=== PATIENT | male | born 1990 | race Hispanic/Latino ===

== ENCOUNTER 2019-11-02 20:11 | Inpatient (IN) | payer SELFPAY ==
[~2019-11-02] VITALS: Ht 175.3 cm; Wt 76.7 kg
[2019-11-02] MEDS ORDERED: PENICILLIN G BENZATHINE LA 1.2 MU TBX IM STA (21:30)
[2019-11-02] MEDS ORDERED: SODIUM CHLORIDE 0.9% 1000ML 1,000 ML ONE (21:42)
[2019-11-02] MEDS ORDERED: ONDANSETRON HCL INJ 2MG/ML 2ML 2 MG/ML VIAL ONE (21:42)
[2019-11-02 21:43] LABS: BASOPHILS # (AUTO) 0.1 (0.0-0.1); BASOPHILS % 0.6 % (0.0-1.0); EOSINOPHILS % 0.1 % (0.0-6.0); HEMATOCRIT 52.1 % (38.2-49.6); HEMOGLOBIN 17.1 g/dL (14.0-18.0); LYMPHOCYTES # (AUTO) 1.2 (1.0-3.2); LYMPHOCYTES % 8.7 % (18.0-39.1); MEAN CORPUSCULAR HEMOGLOBIN 28.7 pg (28-32); MEAN CORPUSCULAR HGB CONC 32.8 g/dL (31-35); MEAN CORPUSCULAR VOLUME 87.6 fL (81-99); MONOCYTES # (AUTO) 0.6 (0.2-0.8); MONOCYTES % 4.6 % (4.4-11.3); NEUTROPHILS # (AUTO) 11.9 (2.1-6.9); NEUTROPHILS % 85.7 % (38.7-80.0); PLATELET COUNT 177 x10e3/uL (140-360); RED BLOOD COUNT 5.95 x10e6/uL (4.3-5.7); RED CELL DISTRIBUTION WIDTH 13.7 % (11.7-14.4)
[2019-11-02] MEDS ORDERED: SODIUM CHLORIDE 0.9% 1000ML 1,000 ML IV ONE ×2 (21:45→23:30)
--- NOTE | 2019-11-02 21:48 | Emergency Department Note ---
History of Present Illnes History of Present Illness Chief Complaint: COVID PUI History of Present Illness This is a 29 year old male PRESENTS TO ED WITH N/V, GENERALIZED WEAKNESS X5 DAYS AND STREP THROAT DX'D ON MONDAY AT ER; PT REPORTS, "MY MOM MADE ME COME IN. STARTED ORAL ANTIBIOTICS 2 DAYS AGO. Historian: Patient, Family Member Arrival Mode: Car Onset (how long ago): day(s) (5) Location: THROAT Quality: PAIN, N/V, WEAKNESS Radiation: Reports non-radiation Severity: moderate Onset quality: gradual Duration (how long): day(s) (5) Timing of current episode: constant Progression: waxing and waning Chronicity: new Context: Reports recent illness (POSITIVE STREP SCREEN) Relieving factors: none Exacerbating factors: none Associated symptoms: Reports fever/chills, Reports nausea/vomiting Past Medical/Family History Physician Review I have reviewed the patient's past medical and family history. Any updates have been documented here. Past Medical History Recent Fever: No Clinical Suspicion of Infectio: No New/Unexplained Change in Ment: No Past Medical History: None Past Surgical History: None Social History Smoking Cessation: Never Smoker Alcohol Use: None Any Illegal Drug Use: No Family History Family history of heart diseas: No Review of Systems Review of Systems Constitutional: Reports no symptoms EENTM: Reports as per HPI Cardiovascular: Reports no symptoms Respiratory: Reports no symptoms Gastrointestinal: Reports no symptoms, Reports as per HPI Genitourinary: Reports no symptoms Musculoskeletal: Reports no symptoms Integumentary: Reports no symptoms Neurological: Reports no symptoms Psychological: Reports no symptoms Endocrine: Reports no symptoms Hematological/Lymphatic: Reports no symptoms Physical Exam Related Data Allergies: Coded Allergies: No Known Allergies (Unverified , 11/02/19) Triage Vital Signs Vital Signs Date Time Temp Pulse Resp B/P (MAP) Pulse Ox O2 Delivery O2 Flow Rate FiO2 11/02/19 20:43 99.3 130 18 132/98 99 Room Air Vital signs reviewed: Yes Physical Exam CONSTITUTIONAL Constitutional: Present well-developed, Present well-nourished HENT HENT: Present normocephalic, Present atraumatic, Present nose normal, Present erythema (EXUDATES, TONSILAR HYPERTROPHY) HENT L/R: Present left ext ear normal, Present right ext ear normal EYES Eyes: Reports PERRL, Reports conjunctivae normal NECK Neck: Present ROM normal PULMONARY Pulmonary: Present effort normal, Present breath sounds normal CARDIOVASCULAR Cardiovascular: Present regular rhythm, Present heart sounds normal, Present capillary refill normal, Present tachycardia (130) GASTROINTESTINAL Abdominal: Present soft, Present nontender, Present bowel sounds normal GENITOURINARY Genitourinary: Present exam deferred SKIN Skin: Present warm, Present dry MUSCULOSKELETAL Musculoskeletal: Present ROM normal NEUROLOGICAL Neurological: Present alert, Present oriented x 3, Present no gross motor or sensory deficits PSYCHOLOGICAL Psychological: Present mood/affect normal, Present judgement normal Results Laboratory Laboratory Laboratory Tests Test 11/03/19 00:56 11/02/19 22:48 11/02/19 21:35 Lactic Acid Level 2.1 mmol/L (0.5-2.0) 3.2 mmol/L (0.5-2.0) White Blood Count 13.81 x10e3/uL (4.8-10.8) Red Blood Count 5.95 x10e6/uL (4.3-5.7) Hemoglobin 17.1 g/dL (14.0-18.0) Hematocrit 52.1 % (38.2-49.6) Mean Corpuscular Volume 87.6 fL (81-99) Mean Corpuscular Hemoglobin 28.7 pg (28-32) Mean Corpuscular Hemoglobin Concent 32.8 g/dL (31-35) Red Cell Distribution Width 13.7 % (11.7-14.4) Platelet Count 177 x10e3/uL (140-360) Neutrophils (%) (Auto) 85.7 % (38.7-80.0) Lymphocytes (%) (Auto) 8.7 % (18.0-39.1) Monocytes (%) (Auto) 4.6 % (4.4-11.3) Eosinophils (%) (Auto) 0.1 % (0.0-6.0) Basophils (%) (Auto) 0.6 % (0.0-1.0) Neutrophils # (Auto) 11.9 (2.1-6.9) Lymphocytes # (Auto) 1.2 (1.0-3.2) Monocytes # (Auto) 0.6 (0.2-0.8) Eosinophils # (Auto) 0.0 (0.0-0.4) Basophils # (Auto) 0.1 (0.0-0.1) Absolute Immature Granulocyte (auto 0.04 x10e3/uL (0-0.1) Sodium Level 140 mmol/L (136-145) Potassium Level 4.7 mmol/L (3.5-5.1) Chloride Level 93 mmol/L (98-107) Carbon Dioxide Level 25 mmol/L (22-29) Anion Gap 26.7 mmol/L (8-16) Blood Urea Nitrogen 41 mg/dL (7-26) Creatinine 3.44 mg/dL (0.72-1.25) Estimat Glomerular Filtration Rate 22 ML/MIN (60-) BUN/Creatinine Ratio 12 (6-25) Glucose Level mg/dL (74-118) Calcium Level 10.0 mg/dL (8.4-10.2) Laboratory Tests Test 11/02/19 21:35 Imaging Imaging results reviewed: Yes Impressions Procedure: [id number] DX/CHEST SINGLE (PORTABLE) Exam Date: 11/02/19 Exam Time: 2149 REPORT STATUS: Signed EXAMINATION: CHEST SINGLE (PORTABLE) INDICATION: FEVER COMPARISON: None FINDINGS: TUBES and LINES: None. LUNGS: Normal lung volumes. Lungs are clear. No consolidations. PLEURA: No pleural effusion or pneumothorax. HEART AND MEDIASTINUM: The cardiomediastinal silhouette is unremarkable. BONES AND SOFT TISSUES: No acute osseous lesion. Soft tissues are unremarkable. UPPER ABDOMEN: No free air under the diaphragm. IMPRESSION: No acute thoracic radiographic abnormality. Signed by: Citlali Rodriguez MD on 11/02/2019 10:39 PM Dictated By: CITLALI RODRIGUEZ MD 38 Transcribed By: KARELY on 11/02/192238 COPY TO: CHARMAINE FERNANDEZ MD~ Procedures 12 Lead ECG Interpretation ECG Interpretation : ECG: ECG 1 Reed Man: Interpreted by ED physician Date: Nov 02, 2019 Time: 21:28 Rhythm: sinus tachycardia Rate: tachycardia BPM: 132 QRS axis: normal ST segments normal: Yes T waves normal: Yes Other findings: no other findings Clinical Impression: non-specific ECG Assessment & Plan Medical Decision Making MDM PT WITH KNOWN STREP HERE WITH WEAKNESS, N/V CBC,BMP, CXR ORDERED TO EVAL FOR PNEUMONIA, ELECTROLYTE ABNORMALITY, DE HYDRATION 1 LITER NS IV ORDERED ZOFRAN 4 MG IV SEPSIS TIME 2351 PT FOUND TO BE IN ACUTE RENAL FAILURE, LACTIC ACID ORDERED, BL OOD CULTURE ORDERED ROCEPHIN 1 GRAM IV ORDERED INITIAL LACTIC ACID 3.[address] MCKENZIE AND LEFT A MESSAGE FOR DR HARDIN Assessment & Plan Final Impression: (1) Severe sepsis (2) Strep pharyngitis (3) Nausea & vomiting (4) Dehydration Depart Disposition: ADMITTED Last Vital Signs Date Time Temp Pulse Resp B/P (MAP) Pulse Ox O2 Delivery O2 Flow Rate FiO2 11/02/19 20:43 99.3 130 18 132/98 99 Room Air Medications in the ED Penicillin G Benzathine 1.2 mu ONCE STAT IM ; Start 11/02/19 at 21:30; Stop 11/02/19 at 21:31 Sodium Chloride 1,000 ml @ 999 mls/hr Q1H1M ONCE IV Last administered on 11/02/19at 21:42; Admin Dose 999 MLS/HR; Start 11/02/19 at 21:45; Stop 11/02/19 at 22:45 Sodium Chloride 1,000 ml @ ud STK-MED ONCE .ROUTE ; Start 11/02/19 at 21:42; Stop 11/02/19 at 21:36; Status DC Ondansetron HCl 4 mg STK-MED ONCE .ROUTE ; Start 11/02/19 at 21:42; Stop 11/02/19 at 21:36; Status DC CHARMAINE FERNANDEZ MD Nov 02, 2019 21:48
[2019-11-02 22:03] LABS: ANION GAP 26.7 mmol/L (8-16); CREATININE, SERUM 3.44 mg/dL (0.72-1.25); POTASSIUM 4.7 mmol/L (3.5-5.1)
[2019-11-02] MEDS ORDERED: CEFTRIAXONE SOD 1 GM/NS 50 ML 50 ML IV ONE (22:15)
--- NOTE | 2019-11-02 22:42 | Diagnostic Imaging Report ---
EXAMINATION: CHEST SINGLE (PORTABLE) INDICATION: FEVER COMPARISON: None FINDINGS: TUBES and LINES: None. LUNGS: Normal lung volumes. Lungs are clear. No consolidations. PLEURA: No pleural effusion or pneumothorax. HEART AND MEDIASTINUM: The cardiomediastinal silhouette is unremarkable. BONES AND SOFT TISSUES: No acute osseous lesion. Soft tissues are unremarkable. UPPER ABDOMEN: No free air under the diaphragm. IMPRESSION: No acute thoracic radiographic abnormality. Signed by: Brandt Renee MD on 11/02/2019 10:39 PM
[2019-11-03] VITALS (8 sets, daily range): BP systolic 118–133; BP diastolic 88–101
--- OUTSIDE RECORDS SUMMARY | 2019-11-03 00:02 | XMS REPORT | Continuity of Care Document ---
Author Author [facility] Organization [facility] Address [address] [place] [address] [place] [id number] Phone Unavailable Care Team Providers Care Sports Centre Manager Name Role Phone Fang FERNANDEZ Attphycelia Unavailable Problems This patient has no known problems. Allergies, Adverse Reactions, Alerts This patient has no known allergies or adverse reactions. Medications This patient has no known medications. Procedures This patient has no known procedures. Results Test Description Test Time Test Comments Results Result Comments Source CHEST SINGLE (PORTABLE) 2019-11-02 22:06:00 [place] [address] Patient Name: KELSEY JUAREZ MR #: [id number] : 1990 Age/Sex: 29/M Req #: [id number] Adm Physician: Ordered by: CHARMAINE FERNANDEZ MD Report #: [id number] Location: ER Room/Bed: Procedure: [id number] DX/CHEST SINGLE (PORTABLE) Exam Date: 11/02/19 Exam Time: 2150 REPORT STATUS: Signed EXAMINATION: CHEST SINGLE (PORTABLE) INDICATION: FEVER COMPARISON: None FINDINGS: TUBES and LINES: None. LUNGS: Normal lung volumes. Lungs are clear. No consolidations. PLEURA: No pleural effusion or pneumothorax. HEART AND MEDIASTINUM: The cardiomediastinal silhouette is unremarkable. BONES AND SOFT TISSUES: No acute osseous lesion. Soft tissues are unremarkable. UPPER ABDOMEN: No free air under the diaphragm. IMPRESSION: No acute thoracic radiographic abnormality. Signed by: Citlali Rodriguez MD on 11/02/2019 10:39 PM Dictated By: CITLALI RODRIGUEZ MD 38 Transcribed By: KARELY on 11/02/192238 COPY TO: CHARMAINE FERNANDEZ MD
--- NOTE | 2019-11-03 01:46 | NUR ---
CELSO TONG NOTIFIED AND AWARE OF CRITICAL LAB VALUE, LACTIC ACID 2.1.
[2019-11-03 02:11] LABS: CLARITY,URINE CLEAR (CLEAR); COLOR,URINE YELLOW (YELLOW)
[2019-11-03 02:12] LABS: AMPHETAMINES SCREEN,URINE NEGATIVE (NEGATIVE); BENZODIAZEPINES SCREEN,URINE NEGATIVE (NEGATIVE); BILIRUBIN,URINE NEGATIVE (NEGATIVE); KETONES,URINE 1+ (NEGATIVE); LEUKOCYTE ESTERASE ,URINE NEGATIVE (NEGATIVE); NITRITE,URINE NEGATIVE (NEGATIVE); PHENCYCLIDINE SCREEN,URINE NEGATIVE (NEGATIVE); PROTEIN,URINE DIPSTICK NEGATIVE (NEGATIVE); URINE UROBILINOGEN 0.2 mg/dL (0.2 - 1); WBC,URINE (MAN) 0-5 /HPF (0-5)
[2019-11-03 02:13] LABS: BACTERIA,URINE FEW /HPF; EPITHELIAL CELLS,URINE RARE /LPF
[2019-11-03] MEDS ORDERED: CEFTRIAXONE SOD 1 GM/NS 50 ML 50 ML IV SCH ×2 (02:30→22:00)
[2019-11-03] MEDS ORDERED: ONDANSETRON HCL INJ 2MG/ML 2ML 2 MG/ML VIAL IV PRN (02:30)
--- OUTSIDE RECORDS SUMMARY | 2019-11-03 02:32 | XMS REPORT | Continuity of Care Document ---
Author Author [facility] Organization [facility] Address [address] [place] [address] [place] [phone] Phone Unavailable Care Team Providers Care Battery Stacker Name Role Phone Fang FERNANDEZ Attphycelia Unavailable Problems This patient has no known problems. Allergies, Adverse Reactions, Alerts This patient has no known allergies or adverse reactions. Medications This patient has no known medications. Procedures This patient has no known procedures. Results Test Description Test Time Test Comments Results Result Comments Source CHEST SINGLE (PORTABLE) 2019-11-02 22:06:00 [place] [address] Patient Name: KELSEY JUAREZ MR #: [id number] : 1990 Age/Sex: 29/M Req #: [id number] Adm Physician: Ordered by: CHARMAINE FERNANDEZ MD Report #: [id number] Location: ER Room/Bed: Procedure: [id number] DX/CHEST SINGLE (PORTABLE) Exam Date: 11/02/19 Exam [...]
--- NOTE | 2019-11-03 04:01 | NUR ---
REPORT RECEIVED FROM HECTOR HOUSTON RN, PATIENT PENDING ARRIVAL TO THE FLOOR ROOM 286, SBAR REPORT GIVEN TO THIS NURSE VERBALLY VIA TELEPHONE, ROCEPHIN 1GM IV GIVEN IN ER, DOSE DUE AT 0230 THIS AM RESCHEDULE TO CORRECT TIME
[2019-11-03 04:14] LABS: LYMPHOCYTES % (MANUAL) 11 % (19-48); MONOCYTES % (MANUAL) 5 % (3.4-9.0); NEUTROPHILS % (MANUAL) 84 % (40-74); RBC MORPHOLOGY COMMENT NORMAL
[2019-11-03 04:15] LABS: PLATELET ESTIMATE ADEQUATE; PLATELET MORPHOLOGY COMMENT MOD EDTA CLUMPING
[2019-11-03] MEDS: SODIUM CHLORIDE 0.9% 1000ML 1,000 ML IV SCH ×3 (05:17→12:29)
--- NOTE | 2019-11-03 07:00 | NUR ---
RECEIVED PATIENT RESTING IN BED NO S/S OF DISTRESS. BED LOW, WHEELS LOCKED, SIDE RAILS X2. CALL LIGHT IN REACH WILL CONTINUE TO MONITOR PATIENT.
[2019-11-03 09:03] LABS: ALBUMIN 3.8 g/dL (3.5-5.0); BILIRUBIN,DIRECT 0.2 mg/dL (0.0-0.5)
[2019-11-03 09:29] LABS: CREATINE KINASE 22 IU/L (30-200)
--- NOTE | 2019-11-03 09:40 | NUR ---
DR. MCKENZIE MADE AWARE OF LACTIC ACID 3.8 NO NEW ORDERS AT THIS TIME. WILL CONTINUE TO MONITOR PATIENT.
[2019-11-03 09:55] LABS: BASOPHILS # (AUTO) 0.1 (0.0-0.1); BASOPHILS % 0.7 % (0.0-1.0); EOSINOPHILS % 0.1 % (0.0-6.0); HEMATOCRIT 51.7 % (38.2-49.6); HEMOGLOBIN 16.4 g/dL (14.0-18.0); LYMPHOCYTES # (AUTO) 2.2 (1.0-3.2); LYMPHOCYTES % 12.2 % (18.0-39.1); MEAN CORPUSCULAR HEMOGLOBIN 29.1 pg (28-32); MEAN CORPUSCULAR HGB CONC 31.7 g/dL (31-35); MONOCYTES % 5.4 % (4.4-11.3); NEUTROPHILS # (AUTO) 14.3 (2.1-6.9); NEUTROPHILS % 81.1 % (38.7-80.0); PLATELET COUNT 163 x10e3/uL (140-360); RED BLOOD COUNT 5.64 x10e6/uL (4.3-5.7); RED CELL DISTRIBUTION WIDTH 14.4 % (11.7-14.4)
[2019-11-03 09:58] LABS: MEAN CORPUSCULAR VOLUME 91.7 fL (81-99)
[2019-11-03 10:07] LABS: ANION GAP 23.7 mmol/L (8-16); CALCIUM 10.2 mg/dL (8.4-10.2); CREATININE, SERUM 2.69 mg/dL (0.72-1.25); POTASSIUM 4.7 mmol/L (3.5-5.1)
[2019-11-03] MEDS ORDERED: DEXTROSE 50% SYRINGE 50 ML IV PRN ×2 (10:15→15:15)
[2019-11-03] MEDS ORDERED: INSULIN LISPRO 100 UNIT/1 ML 3ML VIAL SQ ONE (10:15)
[2019-11-03] MEDS ORDERED: INSULIN GLARGINE 100 UNITS/ML VIAL SQ ONE (10:15)
[2019-11-03] MEDS ORDERED: VANCOMYCIN 1GM/NS 250 ML 250 ML IV ONE (10:15)
[2019-11-03] MEDS: CEFTRIAXONE SOD 1 GM/NS 50 ML 50 ML IV SCH ×2 (10:28→21:00)
[2019-11-03] MEDS ORDERED: DIATRIZOATE MEGL/DIATRIZOA SOD 30 ML BTL PO ONE (10:40)
[2019-11-03] MEDS ORDERED: INSULIN REGULAR, HUMAN 3ML VL 100 UNIT in SODIUM CHLORIDE 0.9% 100 ML 99 ML IV SCH ×2 (10:45)
--- NOTE | 2019-11-03 11:05 | NUR ---
PATIENT TRANSFERRED TO ROOM 197 IN STABLE CONDITION.
[2019-11-03] MEDS ORDERED: INSULIN LISPRO 100 UNIT/1 ML 3ML VIAL SQ SCH ×2 (11:30)
--- NOTE | 2019-11-03 11:57 | History and Physical ---
CHIEF COMPLAINT: Generalized weakness for the past week associated with strep throat diagnosis on in emergency room. HISTORY OF PRESENT ILLNESS: The patient is a 29-year-old male, was brought in by his mother. Apparently, the patient started his oral antibiotics approximately 2 days ago, diagnosed at emergency room on for strep throats. The patient had generalized weakness and infection for the past week or so. He did not go to the emergency room, but went to a clinic. Apparently in the clinic, the patient was given antibiotics. The patient now came in with acute renal failure. He is coherent. He does have metabolic acidosis. The patient does have increase in pulse rate as well. The patient's BUN and creatinine were 41 and 3.4. IV fluid initiated. White cell count was 14,000. The patient is admitted to the hospital for further IV rehydration, renal failure treatment and antibiotics. PAST MEDICAL HISTORY: Noncontributory. PAST SURGICAL HISTORY: Noncontributory. SOCIAL HISTORY: The patient does not smoke or use alcohol. No regular drugs. ALLERGIES: NO KNOWN ALLERGIES. HOME MEDICATIONS: None. PHYSICAL EXAMINATION: VITAL SIGNS: Temperature is 99, blood pressure 132/98, pulse rate is 120, and respiration 22. GENERAL: The patient is not in any distress. HEENT: Normocephalic and atraumatic. He is anicteric. NECK: Supple grossly. Throat, pharyngitis. There is some redness in the area. PULMONARY: Clear to auscultation bilaterally. There is no wheezing or rales. CARDIOVASCULAR: S1 and S2. Tachycardia. ABDOMEN: Soft, nontender, and non-distention. EXTREMITIES: No gross cyanosis or edema. NEUROLOGIC: No gross focal deficit. LABORATORY DATA: WBC 17.6, hemoglobin 16.4, hematocrit 51.7, and platelet is 163. Chemistry; sodium is 140, potassium 4.7, chloride 93, bicarb 25, BUN is 41, creatinine 3.54, and glucose is pending. Calcium is 10.0. Lactic acid 3.2. Chest x-ray unremarkable. IMPRESSION: 1. Lactic acidosis, most likely secondary to acute renal failure from Streptococcus infection. 2. Sepsis due to infection, but no shock. 3. Leukocytosis from the above. PLAN: The patient's urinalysis showed no hematuria. The patient will continue with IV antibiotic q.12 hours, Rocephin. Consultation with Nephrology for management of renal failure. CT abdomen and pelvis without contrast and I would like to go ahead with CT of the neck soft tissue without contrast as well. The patient has no respiratory compromise. He is stable in light of metabolic acidosis and sepsis. Continue with aggressive IV fluid rehydration and also antibiotic treatment. We will consult Dr. Derek Natarajan for the sepsis. MD MORTEZA Hirsch/MODL /[id number]
[2019-11-03] MEDS ORDERED: SODIUM CHLORIDE 23.4% 38.5 MEQ in STERILE WATER IV SOLN 1,000 ML IV SCH (13:45)
[2019-11-03] MEDS ORDERED: INSULIN REGULAR, HUMAN 3ML VL 100 UNIT in SODIUM CHLORIDE 0.45% 100 ML 100 ML IV SCH ×2 (15:15)
[2019-11-03 15:41] LABS: CHOL/HDL RATIO 9.1 (3.9-4.7); CHOLESTEROL 255 MD/DL (0-199); HDL CHOLESTEROL 28 MG/DL (40-60); TRIGLYCERIDES 799 MG/DL (0-149)
--- NOTE | 2019-11-03 15:55 | Diagnostic Imaging Report ---
CT Abdomen and Pelvis without contrast INDICATION: ^PAGE/LACTIC ACIDOSIS ^[id number] ^1515 TECHNIQUE: Thin collimation axial images obtained from the diaphragm to the level of the pubic symphysis without nonionic intravenous contrast. Dose reduction techniques used: Automated exposure control, adjustment of the mAs and/or kVp according to patient size, standardized low-dose protocol, and/or iterative reconstruction technique. RADIATION DOSE: Total DLP: 1174.04 mGy*cm Estimated effective dose: (DLP x 0.015 x size factor) mSv CTDIvol has been reviewed. It is below the limits set by the Radiation Protocol Committee (RPC). COMPARISON: None. ABDOMEN FINDINGS: Lung Bases: Bibasilar subsegmental atelectasis. The visualized portion of the mediastinum is normal. Liver: Geographic hypoattenuation suggestive of steatosis. Underlying masses, if any, are poorly visualized the absence of intravenous contrast. Gallbladder: Present and appears normal. No ductal dilatation. Pancreas: Normal attenuation without mass. Spleen: Normal size without mass. Adrenal Glands: No evidence for mass. Kidneys: Right: No renal calculus. No cortical mass or hydronephrosis Left: No renal calculus. No cortical mass or hydronephrosis Lymph Nodes: No enlarged abdominal or retroperitoneal lymph nodes.. Aorta: Normal in diameter. PELVIS FINDINGS: Bowel: Stomach: Collapsed and otherwise normal in appearance. Small Bowel: Enteric contrast in the distal small bowel. Small bowel loops are normal in diameter with normal wall thickness.. Large Bowel: Contains enteric contrast in the right colon. Moderate stool burden throughout. No dilatation or mural thickening. No diverticula. Appendix: Normal. Bladder: Well-distended and normal. Ureters: No ureteral dilatation or calculus. Peritoneum/retroperitoneum: No free fluid or fluid collection.. Bones: Unremarkable for age. IMPRESSION: 1. Moderate to severe steatosis. 2. No evidence for bowel obstruction or inflammation. Normal appendix. 3. No evidence of renal calculus or obstructive uropathy. Signed by: Dr. Blaine Mandel MD on 11/03/2019 3:51 PM
[2019-11-03] MEDS ORDERED: INSULIN REGULAR, HUMAN 3ML VL 100 UNIT in SODIUM CHLORIDE 0.9% 100 ML 100 ML IV SCH ×2 (16:00)
[2019-11-03 16:01] LABS: FREE T4 (FREE THYROXINE) 0.85 ng/dL (0.8-1.8); THYROID STIMULATING HORMONE 1.466 uIU/mL (0.350-4.940)
--- NOTE | 2019-11-03 16:06 | Diagnostic Imaging Report ---
History: Rule out abscess Comparison studies: None Technique: Axial images were obtained from the skull base to the thoracic inlet. Coronal and sagittal images reconstructed from the axial data. Dose modulation, iterative reconstruction, and/or weight based adjustment of the mA/kV was utilized to reduce the radiation dose to as low as reasonably achievable. Intravenous contrast: None Findings: Evaluation of the neck is limited due to the absence of intravenous contrast. In spite of this limitation, Airway: Patent. Soft tissues: No abnormalities. Lymph nodes: Multiple homogeneous, noncalcified bilateral supra and infrahyoid jugular are nonspecific and probably reactive Vessels: Cannot evaluate. Glands (thyroid, parotid and submandibular): Normal in size and symmetric. No masses. Orbits: No abnormalities. Paranasal sinuses: Clear. Temporal bones: No abnormalities. Skull base and facial bones: Intact. Cervical spine: No abnormalities IMPRESSION: 1. Nonspecific reactive lymph nodes in the supra and infrahyoid jugular chains. 2. Otherwise, no abnormalities. 3. No findings to suggest the presence of an abscess in spite of the lack of intravenous contrast. Signed by: Dr. Ham Ag M.D. on 11/03/2019 4:03 PM
[2019-11-03] MEDS: DEXTROSE 5%/0.225% SOD CHL 1,000 ML IV SCH ×2 (16:08→22:41)
--- NOTE | 2019-11-03 19:55 | Consultation ---
DATE OF CONSULTATION: Initial Nephrology Consultation Report. REASON FOR CONSULTATION: Renal failure. HISTORY OF PRESENT ILLNESS: Mr. Mina is a 29-year-old male, who is admitted to the hospital because of some weakness and also no nausea and vomiting. I am being asked to see him because of an initial serum creatinine of about 3.4. Today the serum creatinine is 2.69. We do not have any other baseline on him so I do not know what his baseline renal function is, but the patient denies taking any NSAIDs or JACOBO inhibitors. Apparently, this patient was diagnosed with strep throat a few days ago and he was started on some antibiotics. I do not know what antibiotic it was that he was started on. PAST MEDICAL HISTORY: Noncontributory. PAST SURGICAL HISTORY: Noncontributory. REVIEW OF SYSTEMS: As per HPI. PHYSICAL EXAMINATION: VITAL SIGNS: Blood pressure 129/99, pulse is 125 and afebrile. GENERAL: The patient is in no acute distress. His face does look a little flushed. HEENT: No increased JVD. CARDIOVASCULAR: Regular rate and rhythm. LUNGS: Decreased breath sounds at bases bilaterally. ABDOMEN: Positive bowel sounds. EXTREMITIES: No edema, cyanosis, or clubbing. LABORATORY RESULTS: White count is 17,000, hemoglobin and hematocrit 16 and 51, platelet count 163,000. Urinalysis negative for protein and negative for blood. Negative leukocyte esterase. Sodium 157, potassium 4.7, chloride 112, bicarbonate 26, BUN and creatinine 38 and 2.69 respectively. Glucose is 723. Hemoglobin A1c is 16.3, lactic acid is 3.8, calcium 10.2. IMPRESSION: 1. Acute kidney injury. 2. Hypernatremia. 3. Hyperglycemia. 4. Questionable diabetes. PLAN: Most likely this patient has acute kidney injury secondary to decreased effective renal blood flow secondary to prerenal state because of the nausea, vomiting, and also the SIRS from the infection. His renal function is starting to improve with IV fluids, I will make sure that he is getting a hypotonic IV fluid like D5 water especially since he is hypernatremic. This does not look like a post streptococcal glomerulonephritis and the time frame for this is not right, usually that happens a few weeks later and also the patient does not have any protein or blood in the urine. This most likely is just ATN, he should improve with hydration. I will follow the patient with you. Thank you, Dr. Cross, for this consultation. Ather MD ISABEL Stout/ANAI /[id number]
[2019-11-03] MEDS ORDERED: INSULIN GLARGINE 100 UNITS/ML VIAL SQ SCH (21:00)
--- NOTE | 2019-11-03 22:21 | Consultation ---
DATE OF CONSULTATION: 11/03/2019 Endocrine Consultation This is a patient of Dr. Brandt Cross. Thank you very much for referring this patient. HISTORY OF PRESENT ILLNESS: This is a 29-year-old gentleman, who was referred to me for evaluation of new onset diabetes mellitus and diabetic ketoacidosis. The patient came to the hospital with history of sore throat, chest condition and abdominal pain. On further evaluation, his blood sugar was found to be 723, his anion gap initially was 26.7. His hemoglobin A1c 16.3. The patient is not a known diabetic for the past. He does have however family history of diabetes mellitus. The patient has been started on IV fluids and insulin drip. The patient does not smoke and is a social drinker. PHYSICAL EXAMINATION: GENERAL: Today, the patient is alert, awake, a little bit apprehensive. He is slightly dehydrated. VITAL SIGNS: His heart rate is around 100, blood pressure 130/80 mmHg. HEENT: Essentially unremarkable. Thyroid is palpable. Clinically, he is near euthyroid. CHEST: Bilateral vesicular breathing. No rales. CARDIAC: First and second heart sounds. There is no 3rd or 4th heart sound. Ejection systolic murmur grade 2/6. 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 IMPRESSION: Diabetes mellitus probably type 2 diabetic ketoacidosis, dehydration, mild lactic acidosis, high white count probably related to ketoacidosis. PLAN: At this time is to continue the insulin drip, monitor his blood sugars closely. The patient needs extensive diabetic and dietary education and since his sodium level is 157 we need to change the IVs to D5 1/4 normal saline. Thanks again for referring this patient. I will follow the patient with you. MD KRISTOPHER Kathleen/CELENAL /[id number]
[2019-11-04] VITALS (8 sets, daily range): BP systolic 96–119; BP diastolic 67–96
[2019-11-04 05:26] LABS: CALCIUM 9.6 mg/dL (8.4-10.2); CREATININE, SERUM 1.62 mg/dL (0.72-1.25)
[2019-11-04 07:03] LABS: BASOPHILS # (AUTO) 0.1 (0.0-0.1); BASOPHILS % 0.4 % (0.0-1.0); EOSINOPHILS # (AUTO) 0.2 (0.0-0.4); EOSINOPHILS % 1.7 % (0.0-6.0); HEMATOCRIT 41.7 % (38.2-49.6); HEMOGLOBIN 13.4 g/dL (14.0-18.0); LYMPHOCYTES # (AUTO) 2.7 (1.0-3.2); LYMPHOCYTES % 19.1 % (18.0-39.1); MEAN CORPUSCULAR HEMOGLOBIN 29.1 pg (28-32); MEAN CORPUSCULAR HGB CONC 32.1 g/dL (31-35); MEAN CORPUSCULAR VOLUME 90.7 fL (81-99); MONOCYTES # (AUTO) 0.9 (0.2-0.8); MONOCYTES % 6.1 % (4.4-11.3); NEUTROPHILS # (AUTO) 10.3 (2.1-6.9); NEUTROPHILS % 72.3 % (38.7-80.0); PLATELET COUNT 120 x10e3/uL (140-360); RED CELL DISTRIBUTION WIDTH 13.9 % (11.7-14.4)
[2019-11-04] MEDS: DEXTROSE 5%/0.225% SOD CHL 1,000 ML IV SCH (08:00)
--- NOTE | 2019-11-04 11:43 | Consultation ---
DATE OF CONSULTATION: 11/04/2019 Infectious Disease Consult REASON FOR CONSULTATION: Sepsis. Thank you, Dr. Cross, for asking me to see this patient. HISTORY OF PRESENT ILLNESS: The patient is a 29-year-old man who is referred for sepsis. He presented to the emergency department with intractable nausea and vomiting. He has had sore throat, which was evaluated outpatient several days earlier. Following the evaluation, the patient was prescribed antibiotic, which he took prior to onset of the above symptoms. The patient has had increased thirst and urination as well. He denies fever, chills, headache, dysuria, diarrhea, change in smell, or change in taste. On triage, he was noted to have temperature of 99.3 degrees Fahrenheit, pulse rate 130, respiratory rate 18, blood pressure 132/98, and oxygen saturation 99% on room air. Initial laboratory studies showed blood leukocyte count of 13,810, BUN 41, creatinine 3.44, and blood glucose 723. Chest x-ray showed no acute findings. PAST MEDICAL HISTORY: None. PAST SURGICAL HISTORY: None. ALLERGIES: NO KNOWN DRUG ALLERGIES. MEDICATIONS: The current antibiotic is ceftriaxone 1 g IV piggyback q.12 hours. FAMILY HISTORY: Diabetes mellitus-father and mother. SOCIAL HISTORY: No tobacco or recreational drug use. The patient drinks alcohol rarely. REVIEW OF SYSTEMS: As per history of present illness. PHYSICAL EXAMINATION: GENERAL: No acute distress. VITAL SIGNS: T-max 99.6, pulse rate 106, respiratory rate 18, blood pressure 105/80, and weight 169 pounds. HEENT: Normocephalic and atraumatic. There is no icterus or injection of conjunctiva. There is no ear or nasal discharge. There is no oral mucosa. No pharyngeal erythema or exudate. NECK: Supple. No meningismus or JVD. LUNGS: Clear to auscultation bilaterally. HEART: Normal S1, S2. Tachycardic. ABDOMEN: Soft and nontender. EXTREMITIES: Without edema, clubbing, or cyanosis. SKIN: Without acute erythema. FOOD PRODUCTION WORKER: Awake, alert, and oriented to person, place, and time. Nonfocal. LABORATORY AND DIAGNOSTICS: WBC 14,260, hemoglobin 13.4, platelet 120,000, neutrophils 72.3, lymphocytes 19.1, monocytes 6.1, eosinophils 1.7, and basophils 0.4. BUN 20, creatinine 1.62, blood glucose 318. Coronavirus PCR is pending. Urine drug screen was negative. Blood culture showed no growth. IMPRESSION: 1. Diabetic ketoacidosis. 2. Urinary tract infection. 3. Dehydration. 4. Upper respiratory tract infection, probably viral. PLAN: 1. Rehydration and glycemic control per Internal Medicine and Endocrinology services. 2. Await SARS-CoV-2 PCR. Check HIV screen. 3. Suggest discontinue antibiotics and monitor. MD ROSA Perez/MODL /[id number]
[2019-11-04] MEDS: CEFTRIAXONE SOD 1 GM/NS 50 ML 50 ML IV SCH (13:00)
--- NOTE | 2019-11-04 14:23 | NUR ---
Notified Dr. Field of patient's post lunch Accu-check 427 received orders to increase insulin drip to 6 units /hr. When glucose in the 200's proceed and resume insulin protocol.
--- NOTE | 2019-11-04 15:49 | Progress Note ---
DATE: 11/04/2019 Renal Progress Note SUBJECTIVE: Events over the 24 hours have been noted. The patient really has no complaints. He says he feels better. He is just kind of a little bit anxious. He says he is nervous about the results of the COVID test. PHYSICAL EXAMINATION: VITAL SIGNS: Blood pressure 119/96, pulse of 121, respirations 16. GENERAL: The patient is in no acute distress. HEENT: No increased JVD. CARDIOVASCULAR: Tachycardia. Regular rhythm. LUNGS: Clear to auscultation. ABDOMEN: Positive bowel sounds. EXTREMITIES: No edema, cyanosis, or clubbing. LABORATORY RESULTS: White count is 14,000, hemoglobin and hematocrit are 13 and 41 respectively. Sodium 145, potassium 4, chloride 107, bicarbonate 31, BUN and creatinine 20 and 1.6 respectively. Calcium is 9.6. IMPRESSION: 1. Acute kidney injury. 2. Hypernatremia. 3. Hyperglycemia. 4. Questionable diabetes. PLAN: The patient's renal function is actually improving. He came in with a serum creatinine of above 3 and now it is 1.6. He is improving with hydration. His hypernatremia is much resolved. Also, I had ordered quarter normal saline, but then the IV fluid was changed to D5 quarter normal saline. I will change the IV fluid back to half-normal saline at 100 mL an hour, we will continue this. IV fluids will be changed to half-normal saline at the same rate. Ather MD ISABEL Stout/ANAI /[id number]
[2019-11-04] MEDS: SODIUM CHLORIDE 0.45% 1,000 ML IV SCH (17:10)
[2019-11-04] MEDS: INSULIN GLARGINE 100 UNITS/ML VIAL SQ SCH (19:00)
--- NOTE | 2019-11-04 19:36 | NUR ---
Received change of shift report from AM nurse. Patient in bed with no c/o at this time. Patient q 2 hours BS at this time.
--- NOTE | 2019-11-04 20:00 | NUR ---
Patient BS at 156. Patient received lantus and changed drip to 2unt/hr. Teaching done with patient on s and s of low BS. Patient verbalized understanding of teaching.
--- NOTE | 2019-11-04 20:23 | NUR ---
Patient off the floor with resp. to CT of the neck. Addendum: 11/04/19 at 2103 by Lillie Fisher RN error wrong patient
[2019-11-04] MEDS: ACETAMINOPHEN 325 MG TAB PO PRN (21:13)
--- NOTE | 2019-11-04 21:18 | NUR ---
Patient with low grade temp received tylenol.
[2019-11-05] VITALS (9 sets, daily range): BP systolic 105–122; BP diastolic 68–81
--- NOTE | 2019-11-05 | NUR ---
BS at 196. No changes require in insulin drip.
[2019-11-05] MEDS: CEFTRIAXONE SOD 1 GM/NS 50 ML 50 ML IV SCH ×2 (01:00→12:39)
--- NOTE | 2019-11-05 02:46 | NUR ---
Patient resting quitly at this time. Continue monitor.
[2019-11-05] MEDS: SODIUM CHLORIDE 0.45% 1,000 ML IV SCH ×2 (06:27→14:02)
[2019-11-05] MEDS: INSULIN GLARGINE 100 UNITS/ML VIAL SQ SCH ×2 (09:14→20:32)
[2019-11-05] MEDS: FENOFIBRATE 145 MG TAB PO SCH (09:23)
--- NOTE | 2019-11-05 11:30 | NUR ---
pt BG @ [phone] , DR Field notified . Order: to fallow the order . No order for Sliding scale . Pt newly diagnose with diabetics. 8 am 30 u long actin insulin . 9 am insulin gtt DCed per telephone order.
[2019-11-05] MEDS ORDERED: INSULIN REGULAR, HUMAN 100 UNIT/1 ML 3ML VIAL SQ ONE (13:30)
[2019-11-05] MEDS: ACETAMINOPHEN 325 MG TAB PO PRN ×2 (14:02→20:32)
--- NOTE | 2019-11-05 14:45 | NUR ---
Received patient transferred from IMCU to room 209. Respiration even and unlabored without SOB. Denies pain. Call light in reach.
[2019-11-05] MEDS: INSULIN LISPRO 100 UNIT/1 ML 3ML VIAL SQ SCH ×3 (16:30→19:58)
[2019-11-05] MEDS: ENOXAPARIN SOD INJ 40 MG/0.4 ML SYR SC SCH (17:28)
--- NOTE | 2019-11-05 19:00 | NUR ---
RECEIVED PATIENT IN BEDSIDE SHIFT REPORT. PATIENT RESTING IN BED AT THIS TIME. NO PAIN REPORTED. NO S&S OF DISTRESS NOTED. BED LOCKED IN LOWEST POSITION, SIDE RAILS UPX2, CALL LIGHT IN REACH.
[2019-11-05] MEDS: CHLORASEPTIC SPRAY 177 ML BTL MM PRN (20:32)
[2019-11-06] VITALS (7 sets, daily range): BP systolic 102–118; BP diastolic 20–88
[2019-11-06] MEDS: SODIUM CHLORIDE 0.45% 1,000 ML IV SCH ×3 (00:25→18:04)
[2019-11-06] MEDS: CEFTRIAXONE SOD 1 GM/NS 50 ML 50 ML IV SCH ×2 (00:25→15:10)
[2019-11-06 05:40] LABS: ALBUMIN 2.6 g/dL (3.5-5.0); ANION GAP 13.4 mmol/L (8-16); BLOOD UREA NITROGEN 14 mg/dL (7-26); BUN/CREATININE RATIO 11 (6-25); CALCIUM 8.2 mg/dL (8.4-10.2); CARBON DIOXIDE 29 mmol/L (22-29); CHLORIDE 105 mmol/L (98-107); EST GLOMERULAR FILTRATION RATE > 60 ML/MIN (60-); GLUCOSE 107 mg/dL (74-118); POTASSIUM 3.4 mmol/L (3.5-5.1); SODIUM 144 mmol/L (136-145)
[2019-11-06] MEDS: INSULIN GLARGINE 100 UNITS/ML VIAL SQ SCH ×2 (07:00→17:00)
[2019-11-06] MEDS: INSULIN LISPRO 100 UNIT/1 ML 3ML VIAL SQ SCH ×6 (07:30→21:00)
[2019-11-06] MEDS: FENOFIBRATE 145 MG TAB PO SCH (09:06)
[2019-11-06] MEDS: CHLORASEPTIC SPRAY 177 ML BTL MM PRN ×2 (09:07→20:57)
--- NOTE | 2019-11-06 11:45 | NUR ---
Insulin administration provided at this time. Patient is able to return demonstration drawing and injecting insulin to abdominal area.
[2019-11-06] MEDS: ACETAMINOPHEN 325 MG TAB PO PRN ×2 (11:52→20:58)
--- NOTE | 2019-11-06 15:37 | Diagnostic Imaging Report ---
EXAMINATION: FOOT RIGHT COMPLETE INDICATION: Right foot pain COMPARISON: None FINDINGS: No acute fracture or dislocation. Alignment is anatomic. No substantial degenerative change. Mild soft tissue swelling medial to the first MTP joint. No erosions or specific findings of inflammatory or arthropathy. Radiographic findings of gout tend to only be apparent in chronic cases. IMPRESSION: No acute osseous injury. Mild soft tissue swelling medial to the first MTP joint. Signed by: Alice Alejo MD on 11/06/2019 3:34 PM
--- NOTE | 2019-11-06 16:24 | Progress Note ---
DATE: 11/06/2019 Renal Progress Note SUBJECTIVE: Events over the past 24 hours have been noted. The patient is complaining of pain in the right great toe. PHYSICAL EXAMINATION: VITAL SIGNS: Blood pressure 118/88, pulse 108, temperature 99.7. GENERAL: The patient is in no acute distress. HEENT: No increased JVD. CARDIOVASCULAR: Regular rate and rhythm. LUNGS: Decreased breath sounds. ABDOMEN: Positive bowel sounds. EXTREMITIES: No edema, cyanosis or clubbing. LABORATORY RESULTS: Sodium 144, potassium 3.4, chloride 105, bicarbonate 29, BUN and creatinine 14 and 1.3 respectively, calcium 8.2, uric acid is 7.2. IMPRESSION: 1. Acute kidney injury. 2. Hypokalemia. 3. Questionable gouty attack. PLAN: The patient's renal function is improving. He is on half-normal saline at 100 mL an hour. We will decrease that to 75 mL an hour. I will now replace his potassium. His sodium which was hypernatremic but is now getting better. We will continue to have normal saline. NSAIDs and JACOBO-2 inhibitors should be avoided. Ather MD ISABEL Stout/ANAI /[id number]
[2019-11-06] MEDS: ENOXAPARIN SOD INJ 40 MG/0.4 ML SYR SC SCH (17:36)
--- NOTE | 2019-11-06 19:10 | NUR ---
Verbal order given by Dr. Beth to give colchicine 0.6 mg x 2 doses 1 hour apart, a total of 1.2 mg.
--- NOTE | 2019-11-06 19:30 | NUR ---
Notified Dr. Cross about Dr. Beth's order for colchicine.
--- NOTE | 2019-11-06 19:37 | NUR ---
Patient received sitting up in bed. AAO x 4. Patient had no complaints of pain. Respirations even and non-labored. Fall precautions implemented. Telemetry box in place. Patient instructed to call for assistance when needed. Call light within reach.
[2019-11-06] MEDS: COLCHICINE 0.6 MG TAB PO SCH ×2 (20:57→22:20)
[2019-11-07] VITALS (9 sets, daily range): BP systolic 111–120; BP diastolic 76–86
[2019-11-07] MEDS: CEFTRIAXONE SOD 1 GM/NS 50 ML 50 ML IV SCH ×2 (01:21→14:11)
[2019-11-07] MEDS: ACETAMINOPHEN 325 MG TAB PO PRN ×2 (04:20→17:00)
--- NOTE | 2019-11-07 07:00 | NUR ---
Walking rounds done. Bed-side shift report given to oncoming nurse.
[2019-11-07] MEDS: SODIUM CHLORIDE 0.45% 1,000 ML IV SCH (07:24)
[2019-11-07] MEDS: INSULIN LISPRO 100 UNIT/1 ML 3ML VIAL SQ SCH ×7 (07:30→20:52)
[2019-11-07] MEDS: FENOFIBRATE 145 MG TAB PO SCH (07:49)
[2019-11-07] MEDS: INSULIN GLARGINE 100 UNITS/ML VIAL SQ SCH ×2 (07:52→17:10)
[2019-11-07] MEDS: COLCHICINE 0.6 MG TAB PO SCH ×2 (10:02→16:53)
[2019-11-07 10:32] LABS: ANION GAP 13.8 mmol/L (8-16); BLOOD UREA NITROGEN 11 mg/dL (7-26); BUN/CREATININE RATIO 9 (6-25); CARBON DIOXIDE 29 mmol/L (22-29); CHLORIDE 101 mmol/L (98-107); CREATININE, SERUM 1.18 mg/dL (0.72-1.25); EST GLOMERULAR FILTRATION RATE > 60 ML/MIN (60-); GLUCOSE 188 mg/dL (74-118); SODIUM 141 mmol/L (136-145)
[2019-11-07 10:35] LABS: POTASSIUM 2.8 mmol/L (3.5-5.1)
--- NOTE | 2019-11-07 11:15 | NUR ---
potassium 2.8- paged renal through answering service. waiting for response at this time.
[2019-11-07] MEDS ORDERED: POTASSIUM CHLORIDE 20 MEQ TAB CR PO ONE (12:00)
--- NOTE | 2019-11-07 14:31 | NUR ---
GAVE PACKET OF INFORMATION WITH COMMUNITY [employer] FOR ASSISTANCE WITH LOW TO NO INCOME TO PATIENT. RESOURCES THAT PATIENT MAY BE ABLE TO FOLLOW UP UPON DISCHARGE. PT EDUCATED ON EACH RESOURCE AND UNDERSTANDING HOW TO FOLLOW UP TO SEE IF QUALIFIED FOR EACH RESOURCE.
[2019-11-07] MEDS: POTASSIUM CHLORIDE 20 MEQ TAB CR PO SCH (16:53)
[2019-11-07] MEDS: ENOXAPARIN SOD INJ 40 MG/0.4 ML SYR SC SCH (16:53)
[2019-11-07] MEDS: CHLORASEPTIC SPRAY 177 ML BTL MM PRN (16:58)
--- NOTE | 2019-11-07 19:20 | NUR ---
Patient received sitting up in bed. AAO x 4. No acute distress noted. Call light within reach.
[2019-11-08] VITALS: BP 108/87
[2019-11-08] MEDS: CEFTRIAXONE SOD 1 GM/NS 50 ML 50 ML IV SCH (01:14)
[2019-11-08 07:02] VITALS: BP 124/87
[2019-11-08 07:09] LABS: ALANINE AMINOTRANSFERASE 25 IU/L (0-55); ALBUMIN 2.7 g/dL (3.5-5.0); ALBUMIN/GLOBULIN RATIO 0.6 (0.8-2.0); ALKALINE PHOSPHATASE 105 IU/L (40-150); ANION GAP 16.8 mmol/L (8-16); BLOOD UREA NITROGEN 10 mg/dL (7-26); BUN/CREATININE RATIO 8 (6-25); CALCIUM 8.8 mg/dL (8.4-10.2); CARBON DIOXIDE 28 mmol/L (22-29); CHLORIDE 104 mmol/L (98-107); CREATININE, SERUM 1.19 mg/dL (0.72-1.25); EST GLOMERULAR FILTRATION RATE > 60 ML/MIN (60-); GLUCOSE 89 mg/dL (74-118); POTASSIUM 3.8 mmol/L (3.5-5.1); SODIUM 145 mmol/L (136-145)
[2019-11-08] MEDS: INSULIN LISPRO 100 UNIT/1 ML 3ML VIAL SQ SCH ×4 (07:30→11:53)
[2019-11-08] MEDS: FENOFIBRATE 145 MG TAB PO SCH (08:54)
[2019-11-08] MEDS: COLCHICINE 0.6 MG TAB PO SCH (08:54)
[2019-11-08] MEDS: POTASSIUM CHLORIDE 20 MEQ TAB CR PO SCH (08:54)
[2019-11-08 08:55] VITALS: BP 113/85
[2019-11-08] MEDS: INSULIN GLARGINE 100 UNITS/ML VIAL SQ SCH (08:57)
[2019-11-08 09:30] VITALS: BP 113/85
[2019-11-08] MEDS ORDERED: MAGNESIUM SULFATE 2GM/50ML IV ONE (09:30)
--- NOTE | 2019-11-08 10:54 | NUR ---
Nutrition Screen Note RD Recommendation for Physician: -Continue current diet as ordered Plan of Care: RD following, monitoring for tolerance and adequacy Nutrition reason for involvement: consult for diabetic diet education Primary Diagnose(s): acute renal failure, dehydration, nausea/vomiting, severe sepsis, and strep pharyngitis PMH: none Ht: 69 in Wt:169 lb BMI: 25.0 kg/m2 IBW: [address] Assessment: (11/08/19) Chart reviewed. Labs and meds reviewed. Pt is a 29 year old male admitted with acute renal failure, dehydration, nausea/vomiting, severe sepsis, and strep pharyngitis. Pt reports eating about 50% of his meals prior to admission for one week due to N/V. It is recorded pt consumed 50-75% of his meals the past 2 days. No N/V reported at this time. Pt also reports an unintentional weight loss and had weighed 175 lbs a week ago. Pt currently weighs 169 lbs. If accurate, this would be a 3% weight loss in 1 week which is considered to be significant weight loss. Pt has HgbA1c of 16.3%. RD provided verbal explanation and written materials regarding carbohydrate counting and reading the food label. Pt is planned to be discharged today per chart. Current Diet: 1800 ADA Malnutrition Evaluation (11/08/19) The patient does not meet criteria for a specified degree of malnutrition at this time. Will re-evaluate at follow-up as appropriate. Energy intake: It is recorded that pt consumed 50-75% of his meals the past 2 days per chart Weight loss: >2% in 1 week (Acute) per pt Fat loss: no loss identified per observation Muscle loss: no loss identified per observation Supporting Evidence: Fluid accumulation: no edema per MD note Functional Status: N/A Diet Education Needs Assessment (11/07): Diet education indicated Learner(s): pt Barriers: no barriers identified Cultural/Language Modifications: no cultural/language modifications Readiness: acceptance Method: explanation/discussion/handout Topics: carbohydrate counting and reading the food label Understanding/Compliance: pt verbalized understanding Nutrition Care Level: moderate Signed: Crista Choi, EUN, LD
[2019-11-08] MEDS ORDERED: MAGNESIUM SULFATE 2GM/50ML 50 ML IV ONE (11:00)
--- NOTE | 2019-11-08 11:00 | Discharge Summary ---
CONSULTANTS: 1. Dr. Oli Urias. 2. Dr. Vasile Field. 3. Dr. Derek Natarajan. FINAL DIAGNOSES: 1. Diabetic ketoacidosis associated with diabetes type 1, most likely, given the patient's glycohemoglobin A1c of 16.3. 2. Status post severe dehydration from diabetic ketoacidosis. 3. Gout exacerbation. 4. Lactic acidosis secondary to the above. 5. Leukocytosis, most likely reactive. SUMMARY: The patient is 29-year-old male, who presented to the emergency room with dehydration, thought he was having pharyngitis, but turned out the patient had ketoacidosis. Blood sugar was in the 600, 700. The patient was placed on insulin drip in the IMCU adjustment with insulin drip protocol, DKA protocol, Dr. Vasile Field consulted. The patient was giving insulin and he is doing much better now. He was educated on insulin therapy. A diabetes diet, and forensic social worker is helping the patient for outpatient followup due to his unfounded situation. The patient expressed understanding overall. With respect to his metabolic acidosis has completely resolved. Acute kidney injury completely resolved with IV rehydration and diabetic ketoacidosis treatment. The patient is also has gout of 1st metatarsal joint of the right foot, was swelling, but much improved with treatment. The patient is stable now. He will go home today. LABORATORY DATA: Sodium is 145, potassium 3.8, chloride 104, bicarb 22, BUN 10 and creatinine 1.1, glucose is 89. Glycohemoglobin A1c again was 16.3. Blood culture is negative. Foot x-ray just right greater toe swelling. No abscess. No other significant abnormality. The CT of abdomen and pelvis, [id number] steatosis. He has really a very high triglyceride level and he is on fenofibrate at this time. No stones, no obstruction or inflammation noted on the CT scan. Activity as tolerated on going home. ADA diet. Shoes Hand Sewer already seen the patient. Follow up with the recommendation from the forensic social worker. The patient may follow up with me if he wishes. Discussed with the patient on that as well. Prescription is colchicine 0.6 mg twice a day as needed, magnesium oxide 400 mg twice a day, Humulin 70/30, 45 units subcu a.m., 20 units subcu p.m., dose before meals. Insulin syringes given. Fenofibrate 145 mg at bedtime. Glucometer, test strips, lancets. The patient is otherwise stable. Discharged home today. Again, follow up closely for his diabetic type 1 treatment. MD MORTEZA Hirsch/MODL /[id number]
--- NOTE | 2019-11-08 12:59 | NUR ---
patient discharged. IV access removed x2. telemetry removed and returned. prescriptions and discharge instructions and information reviewed with patient and patient's mother. pt aware that he needs to fill prescriptions and is aware of resources available to him. patient wheeled off unit to mother's personal vehicle with all belongings in stable condition.
== END 2019-11-08 12:20 | disposition home or self-care (01) | DRG 638 ==
LOC: ER 21:32 → ERHOLD 11-03 02:28 → MED/SURG3 11-03 03:26 → IMCU 11-03 11:12 → MED/SURG2 11-05 14:54
PROVIDERS: ADMIT Internal Medicine; ATTEND Internal Medicine
DX: E10.10 Type 1 diabetes mellitus with ketoacidosis without coma (principal); N17.9 Acute kidney failure, unspecified; E87.0 Hyperosmolality and hypernatremia; J02.0 Streptococcal pharyngitis; E86.0 Dehydration; Z11.59 Encounter for screening for other viral diseases; Z83.3 Family history of diabetes mellitus; M10.071 Idiopathic gout, right ankle and foot; E87.6 Hypokalemia; E83.42 Hypomagnesemia
CPT/HCPCS: 36415; 70490; 71045; 74176; 80048; 80053; 80061; 80076; 80202; 80307; 81001; 82040; 82550; 82553; 82947; 82948; 83036; 83605; 83735; 84439; 84443; 84484; 84550; 85025; 85651; 86337; 87040; 93005; 96361; 96372; 99284; J0696; J1650; J1815; J1817; J2405; J3370; J3475; J7030; U0002